=== PATIENT | female | born 1980 | race African-American/Black ===

== ENCOUNTER 2020-12-28 11:26 | Outpatient (CLI) | payer OTHER | END 2020-12-28 11:27 | disposition home or self-care (01) | LOC: DTY/OP 11:26 | PROVIDERS: ATTEND Surgery | DX: E66.01 Morbid (severe) obesity due to excess calories (principal) | CPT/HCPCS: 97802 ==

== ENCOUNTER 2021-02-28 17:50 | Outpatient (CLI) | payer BC ==
[2021-02-28 18:44] LABS: #Basophils 0.1 10x3/uL (0.0-0.2); #Eosinphils 0.2 10x3/uL (0.0-0.5); #Monocytes 0.6 10x3/uL (0.0-1.1); #Neutrophils 3.9 10x3/uL (1.5-8.4); %Basophils 0.7 % (0.0-2.0); %Eosinophils 2.3 % (0.0-6.0); %Lymphocytes 33.8 % (18.0-47.0); %Monocytes 7.8 % (0.0-10.0); %Neutrophils 55.3 % (40.0-75.0); Hemoglobin 11.3 g/dL (12.0-15.5); Mean Corpuscular HGB CONC 30.3 g/dL (32.0-36.0); Mean Corpuscular Hemoglobin 23.5 pg (27.0-33.0); Mean Corpuscular Volume 77.5 fl (81.6-98.3); Mean Platelet Volume 11.5 fl (7.4-10.4); Platelet Count 329 10x3/uL (150-450); RBC Distribution Width 18.4 % (11.5-14.5); Red Blood Cell (RBC) Count 4.81 10x6/uL (3.90-5.03); White Blood Cell (WBC) Count 7.1 10x3/uL (3.5-10.5)
[2021-02-28 18:55] LABS: BHCG - Serum Negative (NEGATIVE); Pregs Control Background? CLEAR/WHITE (CLR/WHITE); Pregs Control Bar Appear? YES (CONTROL BAR)
[2021-02-28 19:02] LABS: ALT (SGPT) 25 U/L (8-55); AST (SGOT) 20 U/L (5-34); Albumin 4.4 g/dL (3.5-5.0); Alkaline Phosphatase 82 U/L (40-110); Anion Gap 15 mmol/L (10-20); BUN (Urea Nitrogen) 16 mg/dL (7.0-18.7); Bilirubin, Total 0.4 mg/dL (0.2-1.2); Calc. Creatinine Clearance 0 mL/min (70-130); Calcium 10.1 mg/dL (7.8-10.44); Carbon Dioxide 21 mmol/L (22-29); Chloride 106 mmol/L (98-107); Globulin 3.6 g/dL (2.4-3.5); Glucose 79 mg/dL (70-105); Potassium 3.9 mmol/L (3.5-5.1); Sodium 138 mmol/L (136-145)
[2021-02-28 21:32] LABS: Hemoglobin A1c 4.8 % (4.0-6.0)
[2021-03-01 06:52] LABS: SARS-CoV-2 PCR by NAA Not Detected (NotDetected)
== END 2021-02-28 17:51 | disposition home or self-care (01) ==
LOC: LABBT 17:50
PROVIDERS: ATTEND Surgery
DX: Z01.818 Encounter for other preprocedural examination (principal); E66.01 Morbid (severe) obesity due to excess calories; Z20.822 Contact with and (suspected) exposure to COVID-19
CPT/HCPCS: 71046; 80053; 83036; 84703; 85025; 93005; 93010; U0003; U0005

== ENCOUNTER 2021-03-03 08:53 | Inpatient (IN) | payer BC ==
[2021-03-03] MEDS ORDERED: Heparin 5,000 UNITS/ML VIAL ONE (10:05)
[2021-03-03] MEDS ORDERED: Lidocaine 1% w/Epinephrine 1:100K 20 ML VIAL ONE (10:59)
[2021-03-03] MEDS ORDERED: Bupivacaine 0.25% HCL 30 ML VIAL ONE (10:59)
[2021-03-03] MEDS ORDERED: Fentanyl 100 MCG/2 ML VIAL ONE ×3 (11:07→13:12)
[2021-03-03] MEDS ORDERED: Lidocaine 2% Jelly 5 ML TUBE ONE (11:08)
[2021-03-03] MEDS ORDERED: PROPOFOL 200 MG/20 ML VIAL ONE (11:21)
[2021-03-03] MEDS ORDERED: Ondansetron PF 4 MG/2 ML Vial ONE (11:21)
[2021-03-03] MEDS ORDERED: Glycopyrrolate 0.2 MG/ML 5 ML SYRINGE ONE (11:21)
[2021-03-03] MEDS ORDERED: Rocuronium Bromide 10 MG/ML (10ML VIAL) ONE (11:21)
[2021-03-03] MEDS ORDERED: Dexamethasone 20 MG/5 ML VIAL ONE (11:21)
[2021-03-03] MEDS ORDERED: Lidocaine 1% PF 5 ML VIAL ONE (11:21)
[2021-03-03] MEDS ORDERED: diphenhydrAMINE 50 MG/ML VIAL IVP PRN ×2 (12:50→12:51)
[2021-03-03] MEDS ORDERED: hydrALAZINE 20 MG/ML VIAL SLOW IVP PRN (12:50)
[2021-03-03] MEDS ORDERED: Ondansetron PF 4 MG/2 ML Vial IVP PRN (12:50)
[2021-03-03] MEDS ORDERED: Promethazine HCl 25 MG/ML VIAL IM PRN ×3 (12:50→12:51)
[2021-03-03] MEDS ORDERED: Dextrose 50% Abboject 50 ML SYRINGE SLOW IVP PRN (12:50)
[2021-03-03] MEDS ORDERED: Dextrose 5% in Water 1,000 ML IV PRN (12:50)
[2021-03-03] MEDS ORDERED: Hydrocodone-Acetamin 15 ML UDCUP PO PRN (12:50)
[2021-03-03] MEDS ORDERED: diphenhydrAMINE 25 MG CAP PO PRN (12:51)
[2021-03-03] MEDS ORDERED: Naloxone HCl 0.4 mg/ml Vial IV PRN (12:51)
[2021-03-03] MEDS ORDERED: fentaNYL Citrate/PF 2,000 MCG in Sodium Chloride 0.9% 60 ML IV PRN (12:51)
[2021-03-03] MEDS ORDERED: Promethazine HCl 25 MG/ML VIAL IVPB PRN (12:51)
[2021-03-03] MEDS ORDERED: diphenhydrAMINE 50 MG/ML VIAL IM PRN (12:51)
[2021-03-03] MEDS ORDERED: Ondansetron HCl/PF 4 MG/2 ML Vial IVP PRN (12:51)
[2021-03-03] MEDS ORDERED: Zolpidem Tartrate 5 MG TAB PO PRN (12:51)
[2021-03-03] MEDS ORDERED: Promethazine HCl 25 MG/ML VIAL ONE (13:13)
[2021-03-03] MEDS: Communication Order-Pharmacy FS SCH (16:12)
[2021-03-03 18:20] VITALS: BMI 59.3
[2021-03-03] MEDS: Ondansetron PF 4 MG/2 ML Vial IVP PRN (18:44)
[2021-03-03] MEDS: D5 1/2 NS w/20 mEq KCL 1,000 ML IV SCH ×2 (18:47→22:00)
[2021-03-03] MEDS ORDERED: Enoxaparin Sodium 40 MG/0.4 ML SYRINGE SC SCH (21:00)
[2021-03-04 05:36] LABS: #Lymphocytes 0.8 thou/uL (1.20-3.40); #Monocytes 0.7 thou/uL (0.11-0.59); #Neutrophils 9.7 thou/uL (1.40-6.50); %Basophils 0.3 % (0.0-1.0); %Eosinophils 0.3 % (0.0-10.0); %Lymphocytes 7.3 % (21.0-51.0); %Monocytes 6.1 % (0.0-10.0); Hemoglobin 9.6 g/dL (12.0-16.0); Mean Corpuscular HGB CONC 31.8 g/dL (32.0-36.0); Mean Corpuscular Hemoglobin 24.8 pg (27.0-31.0); Mean Corpuscular Volume 78.2 fL (78.0-98.0); Mean Platelet Volume 10.9 fL (7.4-10.4); Platelet Count 266 thou/uL (130-400); RBC Distribution Width 16.7 % (11.5-14.5); Red Blood Cell (RBC) Count 3.88 mill/uL (4.20-5.40); White Blood Cell (WBC) Count 11.3 thou/uL (4.8-10.8)
[2021-03-04 05:59] LABS: Anion Gap 14 mmol/L (10-20); BUN (Urea Nitrogen) 6 mg/dL (7.0-18.7); Calc. Creatinine Clearance 218 mL/min (70-130); Calcium 8.6 mg/dL (7.8-10.44); Carbon Dioxide 19 mmol/L (22-29); Chloride 105 mmol/L (98-107); Glucose 147 mg/dL (70-105); Potassium 4.6 mmol/L (3.5-5.1); Sodium 133 mmol/L (136-145)
[2021-03-04] MEDS: D5 1/2 NS w/20 mEq KCL 1,000 ML IV SCH ×3 (06:36→11:58)
[2021-03-04] MEDS: Ondansetron PF 4 MG/2 ML Vial IVP PRN (07:49)
[2021-03-04] MEDS ORDERED: Chloraseptic Spray 180 ml Bottle PO PRN (08:41)
[2021-03-04] MEDS ORDERED: Pantoprazole 40 MG VIAL IVP SCH (09:00)
[2021-03-04] MEDS: Hydrocodone-Acetamin 15 ML UDCUP PO PRN ×2 (09:42→15:43)
[2021-03-04] MEDS: Communication Order-Pharmacy FS SCH (11:57)
[2021-03-04 15:40] VITALS: BP 137/89; TEMP 98
== END 2021-03-04 17:15 | disposition home or self-care (01) | DRG 621 ==
LOC: SDC 08:53 → SURG A 12:53 → SJJU 14:17
PROVIDERS: ADMIT Surgery; ATTEND Surgery
PROC: 0DB64ZZ Excision of Stomach, Percutaneous Endoscopic Approach (ICD-10-PCS; principal; 2021-03-04)
PROC: 8E0W4CZ Robotic Assisted Procedure of Trunk Region, Percutaneous Endoscopic Approach (ICD-10-PCS; 2021-03-04)
DX: E66.01 Morbid (severe) obesity due to excess calories (principal); Z68.44 Body mass index [BMI] 60.0-69.9, adult; I10 Essential (primary) hypertension
CPT/HCPCS: 36415; 71046; 80048; 80053; 83036; 84703; 85025; 88307; 93005; 94760; C9113; J0690; J1100; J1644; J1650; J2405; J2550; J2704; J3010; J3480; S0020; U0003; U0005